=== PATIENT | female | born 1950 | race Caucasian/White ===

== ENCOUNTER → 2016-05-12 | Outpatient (CLI) | payer MEDICARE, BC ==
[~2016-05-12] MED LIST: BENADRYL25 M2 PO; CALCIUM + D 6001 TA1 PO; CARDI-OMEGA1000 MG PO; SIMVASTATIN20 MG PO
== END ==
LOC: MC.RAD 07:00
DX: Z12.31 Encounter for screening mammogram for malignant neoplasm of breast (principal)

== ENCOUNTER → 2017-05-14 | Outpatient (CLI) | payer MEDICARE, BC | LOC: MC.RAD 07:40 | DX: Z12.31 Encounter for screening mammogram for malignant neoplasm of breast (principal) ==

== ENCOUNTER → 2018-05-28 | Outpatient (CLI) | payer MEDICARE, BC | LOC: MC.RAD 08:58 | DX: Z12.31 Encounter for screening mammogram for malignant neoplasm of breast (principal) ==

== ENCOUNTER 2019-05-28 07:35 | Day surgery (SDC) | payer MEDICARE, BC ==
[~2019-05-28] VITALS: Ht 170.3 cm; Wt 79.9 kg
[2019-05-28] VITALS (9 sets, daily range): BP systolic 104–144; BP diastolic 67–78; PULSE 61–80; TEMP 98.2
[2019-05-28] MEDS ORDERED: FLONASEALLERGY NS (07:47)
[2019-05-28] MEDS ORDERED: PAMELOR 25MG25 MG PO (07:49)
[2019-05-28] MEDS ORDERED: TIAZAC120 MG PO (07:49)
[2019-05-28 08:12] LABS: PROTHROMBIN TIME 11.1 SECONDS (9.7-12.8)
[2019-05-28 08:15] LABS: PARTIAL THROMBOPLASTIN TIME 33.3 SECONDS (26.0-37.0)
[2019-05-28 08:23] LABS: CALCIUM 9.5 mg/dL (8.4-10.2); CREATININE, serum 0.84 (0.52-1.25)
[2019-05-28 08:32] LABS: HEMATOCRIT 42.9 % (37.0-47.0); HEMOGLOBIN 13.8 g/dl (12.5-16.0); MEAN CELL VOLUME 94 fl (80.0-100.0); MEAN CORPUSCULAR HEMOGLOBIN 30 pg (27.0-31.0); MEAN CORPUSCULAR HGB CONC 32 g/dl (33.0-37.0); MEAN PLATELET VOLUME 8.3 fl (7.4-10.4); PLATELET COUNT 261 K/mm3 (130-400); RED BLOOD COUNT 4.59 M/mm3 (4.10-5.30); REDCELL DISTRIBUTION WIDTH-CV 12.1 % (11.5-14.5)
--- NOTE | 2019-05-28 10:45 | NUR ---
Back from [employer] by bed. Alert and oriented, denies pain and needs at this time. Right TRBand with 15 cc air CD&I, good pulses and cap refill < 3 secs noted. VSS. bedside
--- NOTE | 2019-05-28 12:57 | NUR ---
15 cc air out of Tband. Pressure dressing applied.
--- NOTE | 2019-05-28 13:16 | NUR ---
INT discontinued intact. Discharge instructions given.
--- NOTE | 2019-05-28 13:35 | NUR ---
Transferred to private car by marya
== END 2019-05-28 13:35 | disposition home or self-care (01) ==
LOC: COL.CAR 07:35
PROVIDERS: Internal Medicine Cardiovascular Disease
DX: R07.9 Chest pain, unspecified (principal); R93.1 Abnormal findings on diagnostic imaging of heart and coronary circulation; I08.1 Rheumatic disorders of both mitral and tricuspid valves; I73.9 Peripheral vascular disease, unspecified; E78.2 Mixed hyperlipidemia; I10 Essential (primary) hypertension; Z88.1 Allergy status to other antibiotic agents
CPT/HCPCS: J1644; J2250; J3010

== ENCOUNTER → 2020-06-16 | Outpatient (CLI) | payer MEDICARE, BC ==
[~2020-06-16] MED LIST changes: +FLONASEALLERGY NS; +PAMELOR 25MG25 MG PO; +TIAZAC120 MG PO
== END ==
LOC: COL.RAD 07:44
DX: K21.9 Gastro-esophageal reflux disease without esophagitis (principal)
CPT/HCPCS: A9541